=== PATIENT | female | born 1980 | race Hispanic/Latino ===

== ENCOUNTER 2024-09-25 15:15 | Inpatient (IN) | payer OTHER ==
[~2024-09-25] VITALS: Ht 170.2 cm; Wt 63.5 kg
[2024-09-25 16:05] VITALS: BP 123/89; PULSE 64; RESP 18; TEMP 98.3; O2SAT 100
[2024-09-25 16:41] LABS: BASOPHILS % 0.3 % (0.0-1.0); EOSINOPHILS % 1.9 % (0.0-6.0); LYMPHOCYTES % 22.9 % (18.0-39.1); MONOCYTES % 6.9 % (4.4-11.3); NEUTROPHILS % 67.8 % (38.7-80.0); RED CELL DISTRIBUTION WIDTH 13.5 % (11.7-14.4)
[2024-09-25 17:06] LABS: EST GLOMERULAR FILTRATION RATE 85.0 ML/MIN (>=60)
[2024-09-25] MEDS: CEFEPIME 2 GM in SODIUM CHLORIDE 0.9% 100 ML IV SCH (17:24)
[2024-09-25] MEDS: SODIUM CHLORIDE 0.9% 250ML 250 ML ONE (17:24)
[2024-09-25] MEDS: DAPTOMYCIN 500mg 10ML 500 MG in SODIUM CHLORIDE 0.9% 100 ML IV SCH (17:24)
[2024-09-25] MEDS: ACETAMINOPHEN/CODEINE 300MG - 30MG TAB PO PRN (17:27)
[2024-09-25] MEDS ORDERED: NO HOME MEDS (17:29)
[2024-09-25 18:33] VITALS: BP 123/89; PULSE 64; RESP 18; TEMP 98.3; O2SAT 100
[2024-09-25 20:00] VITALS: BP 131/88; PULSE 62; RESP 18; TEMP 98.2; O2SAT 100
[2024-09-26] VITALS (9 sets, daily range): BP systolic 107–131; BP diastolic 67–88; PULSE 56–118; RESP 18; TEMP 98.1–98.3; O2SAT 100
[2024-09-26] MEDS: HYDROCODONE/APAP 5MG-325MG TAB PO PRN (11:22)
[2024-09-27] VITALS (8 sets, daily range): BP systolic 107–121; BP diastolic 69–77; PULSE 55–69; RESP 16–20; TEMP 98.1–98.5; O2SAT 100
[2024-09-28 05:30] VITALS: BP 95/63; PULSE 57; RESP 16; TEMP 97.8; O2SAT 100
[2024-09-28 08:00] VITALS: BP 110/66; PULSE 66; RESP 18; TEMP 98.4; O2SAT 100
[2024-09-28 08:30] VITALS: BP 110/66; PULSE 66; RESP 18; TEMP 98.4; O2SAT 100
[2024-09-28] MEDS ORDERED: GADOBENATE DIMEGLUMINE 1 ML IV ONE (08:54)
[2024-09-28 12:09] VITALS: BP 114/75; PULSE 74; RESP 19; TEMP 98; O2SAT 97
[2024-09-28 16:04] VITALS: BP 114/67; PULSE 62; RESP 19; TEMP 98.2; O2SAT 98
[2024-09-28 20:00] VITALS: BP 124/72; PULSE 66; RESP 17; TEMP 98.7; O2SAT 100
[2024-09-29] VITALS: BP 99/57; PULSE 54; RESP 17; TEMP 98.2; O2SAT 100
[2024-09-29 04:00] VITALS: BP 101/71; PULSE 56; RESP 18; TEMP 98.3; O2SAT 100
[2024-09-29 08:35] VITALS: BP 118/82; PULSE 59; RESP 18; TEMP 98.4; O2SAT 100
[2024-09-29 08:45] VITALS: BP 118/82; PULSE 59; RESP 18; TEMP 98.4; O2SAT 100
[2024-09-29] MEDS: SODIUM CHLORIDE 0.9% 250ML 250 ML ONE (10:22)
[2024-09-29 12:02] VITALS: BP 122/86; PULSE 66; RESP 19; TEMP 98.6; O2SAT 100
[2024-09-29] MEDS: ALTEPLASE RECOMBINANT 2 MG/2 ML VIAL IV ONE ×2 (13:01→15:51)
[2024-09-29] MEDS: WATER STERILE 10 ML VIAL INJ SCH (13:01)
[2024-09-29 16:27] VITALS: BP 127/91; PULSE 67; RESP 19; TEMP 98.6; O2SAT 100
== END 2024-09-29 16:51 | disposition home or self-care (01) | DRG 558 ==
LOC: MED/SURG3 15:45
PROVIDERS: ADMIT Internal Medicine Infectious Disease; ATTEND Internal Medicine Infectious Disease
PROC: 02HV33Z Insertion of Infusion Device into Superior Vena Cava, Percutaneous Approach (ICD-10-PCS; principal; 2024-09-27)
DX: M71.162 Other infective bursitis, left knee (principal); L03.116 Cellulitis of left lower limb
CPT/HCPCS: 36415; 36569; 71045; 80053; 84702; 85025; 86140; J0692; J1335; J2997; J7050